=== PATIENT | male | born 1995 | race Asian ===

== ENCOUNTER → 2022-01-21 | Outpatient (CLI) | payer SELFPAY ==
[2022-01-21 17:12] LABS: Absolute Lymphocyte Count 2.47 X10^3/uL (0.83-4.51); Absolute Neutrophil Count 3.1 X10^3/uL (2.0-7.7); Basophil# 0.05 X10^3/uL; Basophil% 0.8 % (0-1); Eosinophil# 0.18 X10^3/uL; Eosinophils% 2.9 % (0-5); Hematocrit 43.7 % (40-54); Hemoglobin 13.9 g/dL (13.0-16.5); Lymphocyte # 2.47 X10^3/ul (0.83-4.51); Lymphocyte % 39.5 % (19-41); Mean Corp Hgb Conc 31.8 g/dL (32-36); Mean Corpuscular Hgb 26.6 pg (27.0-32.0); Mean Corpuscular Volume 83.7 fL (80-94); Mean Platelet Vol. 10.4 fl (6.2-12.0); Monocyte# 0.47 X10^3/uL; Monocyte% 7.5 % (0-10); NRBC Flagged by Analyzer 0 % (0-5); Neutrophil # 3.07 X10^3/uL (2.7-7.7); Platelet Count 281 K/mm3 (150-450); RBC Distribution Width CV 14.1 % (11.6-14.6); RBC Distribution Width SD 43.3 fl (35.1-43.9); Red Blood Count 5.22 M/mm3 (4.6-6.2); White Blood Count 6.3 K/mm3 (4.4-11.0)
[2022-01-21 17:40] LABS: Vitamin B12 734 pg/mL (211-911)
[2022-01-21 17:46] LABS: AST(SGOT) 18 U/L (15-37); Alanine Aminotransfer ALT/SGPT 29 U/L (16-61); Alkaline Phosphatase 61 U/L (45-117); Anion Gap 5 (5-15); BUN 21 mg/dL (7-18); BUN/Creat Ratio 25.3 RATIO (10-20); Chloride 108 mmol/L (98-107); Creatinine, Serum 0.83 mg/dL (0.70-1.30); EST Glomerular Filtration Rate 120 mL/min (>60); Est Glom Filt Rate - Afr Amer 146 mL/min (>60); Ferritin 46 ng/mL (26-388); Globulin 3.9 g/dL (2.2-4.2); Glucose 100 mg/dL (74-106); Iron 64 ug/dL (65-175); Iron Binding Capacity,Total 351 ug/dL (250-450); PERCENT IRON SATURATION 18.2 % (15.0-55.0); Potassium 3.7 mmol/L (3.5-5.1); Protein, Total 7.9 g/dL (6.4-8.2); Sodium Level 140 mmol/L (136-145)
[2022-01-25 08:35] LABS: Vitamin D 1,25-Dihydroxy 45.8 pg/mL (24.8-81.5)
== END | disposition home or self-care (01) ==
PROVIDERS: Visit Provider Nurse Practitioner Adult Health
DX: K21.9 Gastro-esophageal reflux disease without esophagitis (principal); D64.9 Anemia, unspecified
CPT/HCPCS: 36415; 80053; 82607; 82652; 82728; 83540; 83550; 85025

== ENCOUNTER 2022-03-16 09:23 | Day surgery (SDC) | payer SELFPAY ==
[2022-03-16 10:00] VITALS: BP 122/63; PULSE 73; RESP 16; TEMP 36.9; O2SAT 100; BMI 27.6
[2022-03-16] MEDS: Lactated Ringers 1,000 ML 15 ML IV (10:06)
--- NOTE | 2022-03-16 10:19 | HP.PCM_ITS ---
History and Physical Date of Admission: 03/16/22 MICHAEL SPEAR, is a 26 M who presents to the office today to establish for GERD, hx H pylori, hx gastric ulcer, hx iron deficiency anemia last year when still living in [place] in a [place]. EGD showed erythematous inflammation in the stomach, positive H pylori, He had low vit D of 9, low ferritin of 2. He then had colonoscopy to r/o source of bleeding in the colon or terminal ileum. He doesn't have the colonoscopy report but has photos--there appear to possibly be ulcers in the TI. Not clear why his iron was so low. He needed iron transfusion. Before treatment of H pylori he had acid reflux, nausea, cramps in his back in infrascapular region. Still gets cramps between shoulder blades, gets headache then too, occurs with fried foods, processed meats, carbs. It went away for 6 mos, then returned recently. Better with ibuprofen. No abd pain at all. Nausea from chicken, no v omiting. No dysphagia. BMs usually 2-3x per day, formed, occas looser stools. No melena or hematochezia. Weight is stable. Appetite is good. He takes pantoprazole and prn gaviscon. He thinks omeprazole is more effective at managing his acid reflux than pantoprazole is, but after 2 mos developed cramps from omeprazole. ROS Const Constitutional: No fatigue ENT ENT: No difficulty swallowing Gastro GI: Positive for bloating, excessive flatus and nausea/dyspepsia; No abdominal pain, belching, change in bowel habits, change in stool character, coffee ground emesis, constipation, cramping, diarrhea, heartburn, difficulty swallowing, feeling full early, incontinent of stools, Vomiting blood/hematemesis, Blood in stool, loose stools, Black,tarry stools, pain with swallowing, vomiting or other Musc Musculoskeletal: No joint pain Skin Skin: No yellowing of the eye or itchy eyes Psych Psychiatric: No anxiety and No depression Endo Endocrine: No fatigue Aller/Imm Allergy/Immunologic: No itchy eyes Eduardo/Lymp Hematologic/Lymphatic: No easy bleeding or easy bruising Assessment and Plan Assessment and Plan (1) GERD (gastroesophageal reflux disease): ?Status:?Acute ?Plan: 26 yr old male with acid reflux, hx H pylori, hx gastric ulcer, hx iron deficiency anemia with ongoing acid reflux and intermittent infrascapular back pain. Will schedule him for EGD to evaluate for esophagitis and Castro's, to ensure resolution of gastric ulcer, recheck for H pylori. Labs today to check on anemia. Will contact him w/ results. Discussed possibility of colonoscopy but will hold off for now unless labs dictate otherwise. f/u 2 wks after EGD. (2) Anemia: ?Status:?Acute ?Plan: as above ? ? ? Orders: Orders Vitamin B12 Today D64.9 - Anemia, unspecified, K21.9 - Gastro-esophageal reflux disease without esophagitis ? Ferritin Today D64.9 - Anemia, unspecified, K21.9 - Gastro-esophageal reflux disease without esophagitis ? Iron+Iron Binding Capacity Today D64.9 - Anemia, unspecified, K21.9 - Gastro- esophageal reflux disease without esophagitis ? Vitamin D 1,25-Dihydroxy Today D64.9 - Anemia, unspecified, K21.9 - Gastro- esophageal reflux disease without esophagitis ? Comprehensive Metabolic Profil Today D64.9 - Anemia, unspecified, K21.9 - Gas tro-esophageal reflux disease without esophagitis ? CBC W/Diff, Automated Today D64.9 - Anemia, unspecified, K21.9 - Gastro- esophageal reflux disease without esophagitis ? I have examined the patient and the H&P has been reviewed. There are no clinical changes since date of exam.
--- NOTE | 2022-03-16 10:45 | EGD_PTH ---
PATIENT: ALMA ROSA SPEAR LOC: EN U#:[id number] AGE/SX: 26/M ROOM: RE03/16/[address]: Dr. Jin Gooden DO : 1995 BED: DIS: 03/16/2022 SPEC #: [id number] RECD: 03/16/22 12:36 STATUS: MILTON REQ #: [id number] BRYSON: 03/16/22 10:[address]: Jin Gooden DEPT: SURGICAL PATHOLOGY RECD BY: Latisha Borrero ENTERED: 03/17/22 07:56 SP TYPE: EGD BIOPSY OT DR: Melanie Primary Care Phys Tissues: A - Duodenum, NOS B - Pylorus C - Gastric mucous membrane D - Gastric mucous membrane E - Gastric mucous membrane F - Esophagus, NOS Procedures: Special Stain Group II Surgery Specimen Level IV Alcian Blue/PAS (control) HEADER OPERATION: EGD ([facility] [place]) with biopsies PRE-OP DIAGNOSIS: GERD, anemia TISSUE SUBMITTED: A ? Duodenum biopsy, B ? Pylorus biopsy, C ? Gastric antrum for H. pylori and path, D ? Gastric cardia biopsy, E ? Gastric body biopsy, F ? Distal esophagus biopsy MICROSCOPIC DIAGNOSIS A. Duodenum, biopsy: Minimal nonspecific chronic inflammation. B. Gastric pylorus, biopsy: Chronic gastritis. C. Gastric antrum, biopsy: Chronic gastritis. See comment. D. Gastric cardia, biopsy: Chronic gastritis. E. Gastric body, biopsy: Chronic gastritis. F. Distal esophagus, biopsy: Gastroesophageal junctional mucosa with chronic inflammation. No evidence of goblet cell metaplasia. See comment. AM:edgar 03/18/2022 COMMENT C. The results of immunohistochemistry for Helicobacter pylori will be reported separately ([id number]). F. Alcian blue/PAS stain with matched control supports the above diagnosis. MICROSCOPIC DESCRIPTION Slides are reviewed. GROSS DESCRIPTION A - Received in fixative is one container labeled with the patient's name and designated duodenum biopsy. The specimen consists of multiple irregular fragments of light chong soft tissue that in aggregate measure 1 x 0.3 x 0.1 cm. The specimen is totally submitted in one cassette. B - Received in fixative is one container labeled with the patient's name and designated pylorus biopsy. The specimen consists of one irregular fragment of light chong soft tissue that measures 0.6 x 0.5 x 0.1 cm. The specimen is totally submitted in one cassette. C - Received in fixative is one container labeled with the patient's name and designated gastric antrum biopsy. The specimen consists of one irregular fragment of light chong soft tissue that measures 0.7 x 0.6 x 0.1 cm. The specimen is totally submitted in one cassette. D - Received in fixative is one container labeled with the patient's name and designated gastric cardia biopsy. The specimen consists of two irregular fragments of light chong soft tissue that in aggregate measure 0.6 x 0.2 x 0.1 cm. The specimen is totally submitted in one cassette. E - Received in fixative is one container labeled with the patient's name and designated gastric body biopsy. The specimen consists of two irregular fragments of light chong soft tissue that in aggregate measure 0.7 x 0.2 x 0.1 cm. The specimen is totally submitted in one cassette. F - Received in fixative is one container labeled with the patient's name and designated distal esophagus. The specimen consists of two irregular fragments of light chong soft tissue that in aggregate measure 0.7 x 0.3 x 0.1 cm. The specimen is totally submitted in one cassette. / AM:edgar 03/17/2022 TC:3 CPT: 52746 x6, 81819
--- NOTE | 2022-03-16 10:45 | IMM_PTH ---
PATIENT: ALMA ROSA SPEAR LOC: EN U#:[id number] AGE/SX: 26/M ROOM: RE03/16/[address]: Dr. Jin Gooden DO : 1995 BED: DIS: 03/16/2022 SPEC #: [id number] RECD: 03/17/22 13:40 STATUS: MILTON REQ #: [id number] BRYSON: 03/16/22 10:[address]: Jin Gooden DEPT: IMMUNOHISTOCHEMISTRY RECD BY: Lucrecia Kendall ENTERED: 03/17/22 13:41 SP TYPE: IMMUNO OTHR DR: Melanie Primary Care Phys Tissues: C - Stomach, NOS Procedures: H Pylori (initial) PHYSICIAN & INSTITUTION [place] [id number] SPECIMEN INFORMATION: Tissue Source: C ? Gastric antrum biopsy Clinical Info: GERD, anemia Specimen Number: [id number] CPT code: 66544 METHODOLOGY: Deparaffinized sections of prefer/formalin-fixed tissue or PAP/DQ stained slides are incubated with monoclonal/polyclonal antibodies/oligonucleotide probes. Localization is made via biotin free immunoperoxidase method. Appropriate controls are performed and reacted as expected. Results on target cell population are indicated in the following table: RESULTS: ANTIBODY / CLONE RESULT Block C H Pylori (polyclonal) negative These tests were developed and their performance characteristics determined by [facility]. They may not have been cleared or approved by the U.S. Food and Drug Administration. The FDA has determined that such clearance or approval is not necessary. The above immunohistochemical/dualISH markers are ordered and reviewed by the Pathologist. INTERPRETATION: C. Gastric antrum, biopsy: Negative for Helicobacter pylori organisms. AM:edgar 03/18/2022
[2022-03-16 11:10] VITALS: BP 106/62; BP 122/63; PULSE 68; RESP 16; TEMP 36.9; O2SAT 94
--- NOTE | 2022-03-16 11:10 | OP.EGD_ITS ---
Patient Name: Radha White Procedure Date: 03/16/2022 10:50 AM Date of : 1995 Age: 26 Procedure: Upper GI endoscopy Indications: Follow-up of Helicobacter pylori Providers: Jin Gooden DO Medicines: Monitored Anesthesia Care Patient Profile: This is a 26 year old male. Refer to note in patient chart for documentation of history and physical. Patient has symptoms of chronic epigastric abdominal pain. Complications: No immediate complications. Procedure: Pre-Anesthesia Assessment: - Prior to the procedure, a History and Physical was performed, and patient medications and allergies were reviewed. The risks and benefits of the procedure and the sedation options and risks were discussed with the patient. All questions were answered and informed consent was obtained. Patient identification and proposed procedure were verified by the physician. Mental Status Examination: alert and oriented. Airway Examination: normal oropharyngeal airway and neck mobility. Respiratory Examination: clear to auscultation. CV Examination: normal. Prophylactic Antibiotics: The patient does not require prophylactic antibiotics. Prior Anticoagulants: The patient has taken no previous anticoagulant or antiplatelet agents. ASA Grade Assessment: II - A patient with mild systemic disease. After reviewing the risks and benefits, the patient was deemed in satisfactory condition to undergo the procedure. The anesthesia plan was to use monitored anesthesia care (MAC). Immediately prior to administration of medications, the patient was re-assessed for adequacy to receive sedatives. The heart rate, respiratory rate, oxygen saturations, blood pressure, adequacy of pulmonary ventilation, and response to care were monitored throughout the procedure. The physical status of the patient was re-assessed after the procedure. After obtaining informed consent, the endoscope was passed under direct vision. Throughout the procedure, the patient's blood pressure, pulse, and oxygen saturations were monitored continuously. The gastroscope was introduced through the mouth, and advanced to the second part of duodenum. The upper GI endoscopy was accomplished without difficulty. The patient tolerated the procedure well. Scope In: 10:58:30 AM Scope Out: 11:04:38 AM Total Procedure Duration Time 0 hours 6 minutes 8 seconds Findings: The Z-line was irregular and was found 38 cm from the incisors. Biopsies were taken with a cold forceps for histology. Verification of patient identification for the specimen was done. Estimated blood loss was minimal. Patchy mildly erythematous mucosa without bleeding was found in the gastric body. Biopsies were taken with a cold forceps for histology. Verification of patient identification for the specimen was done. Estimated blood loss was minimal. The cardia, gastric fundus, anterior wall of the stomach, greater curvature of the stomach, lesser curvature of the stomach, posterior wall of the stomach and incisura were normal. Biopsies were taken with a cold forceps for histology. Verification of patient identification for the specimen was done. Estimated blood loss was minimal. No gross lesions were noted in the duodenal bulb, in the first portion of the duodenum and in the second portion of the duodenum. Biopsies were taken with a cold forceps for histology. Verification of patient identification for the specimen was done. Estimated blood loss was minimal. Impression: - Z-line irregular, 38 cm from the incisors. Biopsied. - Erythematous mucosa in the gastric body. Biopsied. - Normal cardia, gastric fundus, anterior wall of the stomach, greater curvature of the stomach, lesser curvature of the stomach, posterior wall of the stomach and incisura. Biopsied. - No gross lesions in the duodenal bulb, in the first portion of the duodenum and in the second portion of the duodenum. Biopsied. Recommendation: - Discharge patient to home. - Resume previous diet. - Continue present medications. - Await pathology results. Procedure Code(s): --- Professional --- 69587, Esophagogastroduodenoscopy, flexible, transoral; with biopsy, single or multiple CPT copyright 2017 [employer]. All rights reserved. The codes documented in this report are preliminary and upon diesel truck mechanic review may be revised to meet current compliance requirements. Jin Gooden DO 03/16/2022 11:10:11 AM This report has been signed electronically. Number of Addenda: 0 Note Initiated On: 03/16/2022 10:50 AM
--- NOTE | 2022-03-16 11:11 | OP.CCLET_ITS ---
03/16/2022 No Primary Care Physician Re : Upper GI endoscopy procedure for Radha White Dear Care Physician This procedure was performed on Wednesday, March 16, 2022. My impressions and recommendations are as follows: Impressions : - Z-line irregular, 38 cm from the incisors. Biopsied. - Erythematous mucosa in the gastric body. Biopsied. - Normal cardia, gastric fundus, anterior wall of the stomach, greater curvature of the stomach, lesser curvature of the stomach, posterior wall of the stomach and incisura. Biopsied. - No gross lesions in the duodenal bulb, in the first portion of the duodenum and in the second portion of the duodenum. Biopsied. Recommendations : - Discharge patient to home. - Resume previous diet. - Continue present medications. - Await pathology results. My findings are described in the full procedure note, which is enclosed. If I can be of further assistance, please feel free to contact me at . Sincerely, Jin Gooden DO 03/16/2022 11:10:11 AM This report has been signed electronically.
[2022-03-16 11:15] VITALS: BP 109/67; BP 122/63; PULSE 73; RESP 16; O2SAT 97
[2022-03-16 11:20] VITALS: BP 115/72; BP 122/63; PULSE 85; RESP 16; O2SAT 98
[2022-03-16 11:25] VITALS: BP 121/78; BP 122/63; PULSE 75; RESP 16; TEMP 36.9; O2SAT 98
[2022-03-16 11:45] VITALS: BP 122/63
== END 2022-03-16 12:15 | disposition home or self-care (01) ==
LOC: EN 09:31 → AC 09:35
PROVIDERS: Visit Provider Internal Medicine Gastroenterology
PROC: 0DJ08ZZ Inspection of Upper Intestinal Tract, Via Natural or Artificial Opening Endoscopic (ICD-10-PCS; CPT 43235; principal; 2022-03-16 10:40)
DX: K29.50 Unspecified chronic gastritis without bleeding (principal); K21.00 Gastro-esophageal reflux disease with esophagitis, without bleeding; D64.9 Anemia, unspecified; Z79.899 Other long term (current) drug therapy; Z86.19 Personal history of other infectious and parasitic diseases
CPT/HCPCS: 43239; 88305; 88313; 88342; J7120; J2405